=== PATIENT | female | born 1935 | race Caucasian/White ===

== ENCOUNTER 2016-11-28 17:47 | Emergency (ER) | payer MEDICARE, BC ==
[2016-11-28 18:15] VITALS: BP 165/92
--- NOTE | 2016-11-28 18:48 | ERNOTE ---
Upper Extremity HPI - General Extremities Pain Location: thumb: left Time Seen by Provider: 11/28/16 17:53 Source: patient, family Exam Limitations: no limitations - Immun/Allergies/Home Medications Immunizations: IMMUNIZATION HX Immunizations Up to Date Yes History of Influenza Vaccine Yes Hx Pneumococcal Vaccination Yes Allergies/Adverse Reactions: Allergies Allergy/AdvReac Type Severity Reaction Status Date / Time Unobtainable Allergy Unverified 11/28/16 18:01 Home Medications: HOME MEDICATIONS Unobtainable 11/28/16 [Last Taken Unknown] - History of Present Illness Narrative: Patient sustained a little cut on her thumb on a metal piece of farm equipment around 13:00 and covered it with a bandaid. When she checked it around 17:00 it hurt to take the bandaid off and started to bleed again. At that point she felt lightheaded and fell against the kitchen table. She denies hitting her head or passing out, hit the shoulder against the table and has pain in her left shoulder. She was able to get up by herself and call her family, she ambulated into the ER Occurred: just prior to arrival Location of Incident: home Severity: mild Method of Injury: Reports: fell Reason for Fall: Reports: lightheaded Loss of Consciousness: Reports: no loss of consciousness Associated Symptoms: Denies: tingling, weakness Review of Systems - Review of Systems Constitutional: Absent: recent illness, fever, chills EYE: Absent: double vision ENT: Absent: nose congestion, sore throat Respiratory: Absent: shortness of breath, cough Cardiology: Absent: chest pain Gastrointestinal/Abdominal: Absent: nausea, vomiting, diarrhea, abdominal pain Genitourinary: Present: no symptoms reported Musculoskeletal: Present: See HPI, joint pain - shoulder Neurological: Present: dizziness/light-headedness - resolved. Absent: headache , weakness, numbness - Patient's Past Medical History Patient History - Medical: No pertinent hx Patient History - Cardiac/Respiratory: Deep Vein Thrombosis Patient History - Cancer: Breast Patient History - Surgical Procedures: Cancer Surgery Patient History - Other: None - Social History Living Situations: home Abuse History: No History of abuse Psych History: No pertinent hx Smoking Status: Never smoker Alcohol Use: none Drug Use: none - Immunizations Immunizations Up to Date: Yes Hx Pneumococcal Vaccination: Yes History of Influenza Vaccine: Yes Physical Exam - Physical Exam General Appearance: Present: wd/wn, alert, no apparent distress Eye Exam: Normal inspection: bilateral, PERRL: bilateral Ears, Nose, Throat: Present: normal ENT inspection Neck: Present: normal inspection, nontender, supple, full range of motion Respiratory: Present: no respiratory distress, normal breath sounds, no accessory muscle use, chest nontender, lungs clear Cardiovascular/Chest: Present: regular rate, rhythm, no murmur Peripheral Pulses: N=norm/S=strong/W=weak/B=bound/A=absent: Radial (R): Normal, Radial (L): Normal Gastrointestinal/Abdominal: Present: normal bowel sounds, nontender, nondistended, soft Back Exam: Present: normal inspection - kyphotic, normal range of motion, no CVA tenderness, no vertebral tenderness Extremity Exam: Present: normal except - - mild tenderness over right upper medial part of shoulder blade, no deformities, no bony tenderness, full range of motion Neurological Exam: Present: alert, oriented, normal mood/affect, no motor/ sensory deficits Skin Exam: Present: normal color, warm/dry, other - left hand: 1.5cm laceration on first web space, 1mm lac over proximal phalanx bleeding ED Progress - Vital Signs Patient's Vital Signs:: I have reviewed the patient's vital signs. Vital Signs: Vital Signs 11/28/16 17:53 Temperature 37 C Pulse Rate 78 Respiratory 18 Rate Blood Pressure 165/92 O2 Sat by Pulse 97 Oximetry - Progress/Reassessment Chief Complaint: Laceration Progress Note-Subjective: 11/28/16 18:00 small laceration hemostatic with prolonged pressure Procedures Left 1st Digit Anesthesia: 1% Lidocaine Length of Repair/Wound (cm): 1.5 Wound's Depth/Shape: into subcutaneous Wound Explored: clean, to base, no foreign body Wound Intervention: irrigated w/saline Distal NVT: neuro/vasc intact Suture Size/Type: 5-0, nylon Number of Sutures: 3 Layer Closure: Simple Departure Clinical Impression: Laceration Contusion of shoulder, left Qualifiers: Encounter type: initial encounter Qualified Code(s): S40.012A - Contusion of left shoulder, initial encounter - Departure Disposition: Home self-care Condition: Good Instructions: Laceration Care, Adult, [id number], Contusion, [id number] Additional Instructions: keep the dressing on your thumb till tomorrow, after that you should be okay to just use a bandaid, make sure to keep the wounds dry and clean have the sutures removed in 12 days use tylenol for pain and ice on the bruised shoulder Referrals: Wally Gtz MD [Primary Care Provider] -
== END 2016-11-28 18:40 | disposition home or self-care (01) ==
LOC: ER 17:47
PROC: 0JQK0ZZ Repair Left Hand Subcutaneous Tissue and Fascia, Open Approach (ICD-10-PCS; principal; 2016-11-28)
DX: S61.012A Laceration without foreign body of left thumb without damage to nail, initial encounter (principal); S40.012A Contusion of left shoulder, initial encounter; Z85.3 Personal history of malignant neoplasm of breast; Z86.718 Personal history of other venous thrombosis and embolism; W31.89XA Contact with other specified machinery, initial encounter; W22.03XA Walked into furniture, initial encounter; Y92.009 Unspecified place in unspecified non-institutional (private) residence as the place of occurrence of the external cause

== ENCOUNTER 2017-04-13 08:28 | Day surgery (SDC) | payer MEDICARE, BC ==
[~2017-04-13 08:28] MED LIST: ACETAMINOPHEN 325 MG TABLET PO PRN; ACETYLCHOLINE CHLORIDE 20 DROP KIT IO PRN; BUPIVACAINE HCL/PF 30 ML VIAL IJ PRN; CYCLOPENTOLATE HCL 20 DROP BTL RIGHTEYE PRN; DEXTROSE 5%-0.5 NORMAL SALINE 1,000 ML IV PRN; EPINEPHrine 1 MG/ML AMPUL IO PRN; HYALURONATE SODIUM 0.4 ML DISP.SYRIN IO PRN; HYALURONATE SODIUM 0.85 ML DISP.SYRIN IO PRN; LIDOCAINE HCL/PF 200 MG/5 ML AMPUL TP PRN; LIDOCAINE HCL/PF 5 ML VIAL IO PRN; NORMAL SALINE 3 ML BOX IV PRN; TETRACAINE HCL 150 DROP BTL OP PRN
[2017-04-13] MEDS: TROPICAMIDE 150 DROP BTL RIGHTEYE PRN ×3 (09:13→09:44)
[2017-04-13] MEDS: PHENYLEPHRINE HCL 50 DROP BTL RIGHTEYE PRN ×3 (09:13→09:44)
[2017-04-13] MEDS ORDERED: DEXTROSE 5%-0.5 NORMAL SALINE 1,000 ML IV ONE (09:52)
[2017-04-13 11:54] VITALS: BP 137/77
== END 2017-04-13 08:29 | disposition home or self-care (01) ==
LOC: AMB 08:28
PROVIDERS: ATTEND Ophthalmology
PROC: 08RJ3JZ Replacement of Right Lens with Synthetic Substitute, Percutaneous Approach (ICD-10-PCS; principal; 2017-04-13 10:15)
DX: H26.8 Other specified cataract (principal); E78.5 Hyperlipidemia, unspecified; M81.0 Age-related osteoporosis without current pathological fracture; D50.9 Iron deficiency anemia, unspecified; Z68.27 Body mass index [BMI] 27.0-27.9, adult